=== PATIENT | female | born 1995 | race Two or more races ===

== ENCOUNTER 2018-03-15 21:14 | Emergency (ER) | payer SELFPAY ==
[~2018-03-15] VITALS: Ht 162.6 cm; Wt 95.3 kg
[2018-03-15] MEDS ORDERED: ONDANSETRON HCL/PF 4 MG/2 ML VIAL ONE (21:21)
[2018-03-15] MEDS ORDERED: HYDROMORPHONE 1 MG/1 ML DISP.SYRIN ONE (21:22)
[2018-03-15] MEDS ORDERED: KETOROLAC TROMETHAMINE INJ 30 MG/ML VIAL IV ONE (21:30)
[2018-03-15] MEDS ORDERED: ONDANSETRON HCL/PF 4 MG/2 ML VIAL IVP ONE (21:30)
[2018-03-15] MEDS ORDERED: IV NS 0.9% 1,000 ML BAG IV ONE (21:30)
[2018-03-15] MEDS ORDERED: HYDROMORPHONE INJ 2 MG/ML DISP.SYRIN IV ONE (21:30)
--- NOTE | 2018-03-15 21:34 | NUR ---
PT BIB [facility] C/O DISLOCATED R SHOULDER 2/2 THROWING A DODGEBALL. DISTAL CMS INTACT. PT REPORTS THIS IS 4TH TIME SHE DISLOCATED AND LAST TIME IT RESOLVED SPONTANEOUSLY. 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 MOTHER AT BEDSIDE.
[2018-03-15] MEDS ORDERED: KETOROLAC TROMETHAMINE INJ 30 MG/ML VIAL ONE (21:36)
--- NOTE | 2018-03-15 22:55 | NUR ---
ASSUMED D/C CARE ONLY AT THIS TIME ON BEHALF OF PRIMARY NURSE ZACHERY. AAO X4. SMILING SATTING "I FEEL A LOT BETTER". HAS RT ARM SLING IN PLACE. DISTAL CMS INTACT. Patient discharged to home in stable condition. Written and verbal after care instructions given. Patient verbalizes understanding of instruction. IV removed. Catheter intact and site benign. Pressure and 4x4 applied to site. No bleeding noted. Ambulatory with a steady gait accompanied by mother and to f/u with ortho.
[2018-03-15 23:00] VITALS: BP 126/70
== END 2018-03-15 23:01 | disposition home or self-care (01) ==
LOC: ER 21:17
DX: M24.411 Recurrent dislocation, right shoulder (principal); F12.90 Cannabis use, unspecified, uncomplicated; X50.9XXA Other and unspecified overexertion or strenuous movements or postures, initial encounter; Y93.89 Activity, other specified; Y92.89 Other specified places as the place of occurrence of the external cause; Y99.8 Other external cause status
CPT/HCPCS: 73020; A4606; J1170; J1885; J2405; J7030; Z7610